=== PATIENT | female | born 1990 | race Caucasian/White ===

== ENCOUNTER 2018-06-30 09:13 | Emergency (ER) | payer OTHER ==
[2018-06-30 09:45] VITALS: BP 134/82
--- NOTE | 2018-06-30 10:29 | UC ---
Respiratory Complaint HPI - HPI Summary HPI Summary: 28-year-old woman comes to clinic today with a complaint of 5 days of upper respiratory tract infection symptoms. She has a cough bringing up yellow sputum. Positive sore throat. Positive rhinorrhea. No vomiting. No fever. No wheezing. - History of Current Complaint Chief Complaint: UCRespiratory Stated Complaint: COUGH SORE THROAT Time Seen by Provider: 06/30/18 10:10 Hx Last Menstrual Period: 2 yr Pain Intensity: 9 - Allergies/Home Medications Allergies/Adverse Reactions: Allergies Allergy/AdvReac Type Severity Reaction Status Date / Time atomoxetine [From Strattera] Allergy Abdominal Verified 06/30/18 09:46 Pain Home Medications: Home Medications Cold And Flu Med 1 dose PO BID PRN 06/30/18 [History Confirmed 06/30/18] Eucalyptus/Menthol [Salazar Cough Drops] 1 dhiraj MT SEE INSTRUCTIONS PRN 06/30/18 [ History Confirmed 06/30/18] PMH/Surg Hx/FS Hx/Imm Hx Other Endocrine History: OBESITY Other Respiratory History: NO HX ASTHMA/COPD/CHF - Surgical History Surgical History: Yes Surgery Procedure, Year, and Place: tonsils, gallbladder, left wrist cyst - Family History Known Family History: Positive: Cardiac Disease, Diabetes - Social History Alcohol Use: None Substance Use Type: None Smoking Status (MU): Former Smoker Review of Systems Constitutional: Negative Skin: Negative Eyes: Negative ENT: Sore Throat, Nasal Discharge, Sinus Congestion, Sinus Pain/Tenderness Respiratory: Cough Cardiovascular: Negative Gastrointestinal: Negative Genitourinary: Negative Motor: Negative Neurovascular: Negative Musculoskeletal: Negative Neurological: Negative Psychological: Negative Is Patient Immunocompromised?: No All Other Systems Reviewed And Are Negative: Yes Physical Exam Triage Information Reviewed: Yes Appearance: No Pain Distress, Well-Nourished, Ill-Appearing - MILD Vital Signs: Initial Vital Signs Temp 97.2 F 06/30/18 09:38 Pulse 107 06/30/18 09:38 Resp 20 06/30/18 09:38 BP 134/82 06/30/18 09:38 Pulse Ox 96 06/30/18 09:38 Vital Signs Reviewed: Yes Eye Exam: Normal ENT: Positive: Pharyngeal erythema, Nasal congestion, Nasal drainage, TMs normal Neck exam: Normal Neck: Positive: Supple Respiratory: Positive: Lungs clear, Normal breath sounds, No respiratory distress, Other: - Positive dry cough Cardiovascular: Positive: RRR Musculoskeletal Exam: Normal Musculoskeletal: Positive: Strength Intact, ROM Intact, No Edema Neurological Exam: Normal Neurological: Positive: Alert Psychological Exam: Normal Skin Exam: Normal UC Diagnostic Evaluation - Laboratory O2 Sat by Pulse Oximetry: 96 Respiratory Course/Dx - Course Course Of Treatment: DISCUSSED VIRAL VERSES BACTERIAL INFECTION AND THE ROLE OF ANTIBIOTICS. THE PATIENT WISHES TO BE ON ANTIBIOTICS AT THIS TIME. - Differential Dx/Diagnosis Provider Diagnoses: Bronchitis Discharge - Sign-Out/Discharge Documenting (check all that apply): Patient Departure All imaging exams completed and their final reports reviewed: No Studies - Discharge Plan Condition: Stable Disposition: HOME Prescriptions: Azithromyxin BAMBI (NF) [Z-Bambi (Zithromax) 250 mg tabs #6] 2 tab PO .TODAY, THEN 1 DAILY #6 tab Patient Education Materials: Acute Bronchitis (ED) Referrals: Nathalie Begum MD [Primary Care Provider] - Additional Instructions: FOLLOW UP WITH YOUR DOCTOR. GET RECHECKED FOR ANY WORSENING OF YOUR CONDITION OR QUESTIONS OR CONCERNS. - Billing Disposition and Condition Condition: STABLE Disposition: Home
== END 2018-06-30 10:36 | disposition home or self-care (01) ==
LOC: UCCORT 09:13
DX: J40 Bronchitis, not specified as acute or chronic (principal); Z88.8 Allergy status to other drugs, medicaments and biological substances; Z87.891 Personal history of nicotine dependence
CPT/HCPCS: 99212; G0463

== ENCOUNTER 2018-07-10 17:21 | Emergency (ER) | payer OTHER ==
[2018-07-10 19:00] VITALS: BP 127/86
--- NOTE | 2018-07-10 19:39 | UC ---
Ear Complaint HPI - HPI Summary HPI Summary: Patient is complaining of pain to her left ear for a day. She also notes the ear feels plugged. She denies any history of injury, URI and fever. - History of Current Complaint Chief Complaint: UCEar Stated Complaint: LEFT EAR PAIN Time Seen by Provider: 07/10/18 19:14 Hx Obtained From: Patient Hx Last Menstrual Period: 2 yr Onset/Duration: Gradual Onset Pain Intensity: 8 Aggravating Factors: Nothing Alleviating Factors: Nothing Associated Signs/Symptoms: Positive: Hearing Loss. Negative: Foreign Body Sensation, Trauma to Ear - Allergies/Home Medications Allergies/Adverse Reactions: Allergies Allergy/AdvReac Type Severity Reaction Status Date / Time atomoxetine [From Strattera] Allergy Abdominal Verified 07/10/18 19:00 Pain PMH/Surg Hx/FS Hx/Imm Hx Previously Healthy: Yes - Surgical History Surgical History: Yes Surgery Procedure, Year, and Place: tonsils, gallbladder, left wrist cyst - Family History Known Family History: Positive: Cardiac Disease, Diabetes - Social History Lives: With Family Alcohol Use: None Substance Use Type: None Smoking Status (MU): Former Smoker - Immunization History Vaccination Up to Date: Yes Review of Systems Constitutional: Negative Skin: Negative Eyes: Negative ENT: Ear Ache Respiratory: Negative Cardiovascular: Negative Gastrointestinal: Negative Genitourinary: Negative Motor: Negative Neurovascular: Negative Musculoskeletal: Negative Neurological: Negative Psychological: Negative Is Patient Immunocompromised?: No All Other Systems Reviewed And Are Negative: Yes Physical Exam Triage Information Reviewed: Yes Appearance: Well-Appearing Vital Signs: Initial Vital Signs Temp 97.7 F 07/10/18 18:56 Pulse 93 07/10/18 18:56 Resp 20 07/10/18 18:56 BP 127/86 07/10/18 18:56 Pulse Ox 99 07/10/18 18:56 Vital Signs Reviewed: Yes Eyes: Positive: Conjunctiva Clear ENT: Positive: Pharynx normal, TMs normal - R, L TM has deep erythema and the adjacent canal has mild erythema the rest of the canal is clear and there is no exudate. There is no pre-or postauricular adenopathy or mastoid tenderness.. Negative: Nasal congestion, Nasal drainage Neck: Positive: Supple, Nontender, No Lymphadenopathy Respiratory: Positive: Lungs clear, Normal breath sounds Cardiovascular: Positive: RRR, No Murmur Abdomen Description: Positive: Nontender, No Organomegaly, Soft Bowel Sounds: Positive: Present Musculoskeletal: Positive: ROM Intact Neurological: Positive: Alert Psychological: Positive: Age Appropriate Behavior Skin Exam: Normal Ear Complaint Course/Dx - Differential Dx/Diagnosis Differential Diagnosis/HQI/PQRI: Cerumen Impaction, Mastoiditis, Otitis Externa , Otitis Media, Perforated TM Provider Diagnoses: L OM. TOM Discharge - Sign-Out/Discharge Documenting (check all that apply): Patient Departure All imaging exams completed and their final reports reviewed: No Studies - Discharge Plan Condition: Stable Disposition: HOME Prescriptions: Amoxicillin PO (*) [Amoxicillin 875 MG (*)] 875 mg PO BID 10 Days #20 tab Neomyc/Polym/HC 1% OTIC SUSP* [Cortisporin Otic Susp 1%*] 4 drop LEFT EAR TID # 1 btl Patient Education Materials: Ear Infection (ED) Referrals: Nathalie Begum MD [Primary Care Provider] - 7 Days Additional Instructions: USE THE EAR DROPS X 1 WEEK. 4 DROPS LEFT EAR 3X'S DAILY - Billing Disposition and Condition Condition: STABLE Disposition: Home
== END 2018-07-10 19:54 | disposition home or self-care (01) ==
LOC: UCCORT 17:21
DX: H66.92 Otitis media, unspecified, left ear (principal); H60.92 Unspecified otitis externa, left ear; Z88.8 Allergy status to other drugs, medicaments and biological substances
CPT/HCPCS: 99212; G0463

== ENCOUNTER 2018-10-12 18:42 | Emergency (ER) | payer OTHER ==
[2018-10-12 19:53] VITALS: BP 161/81
--- NOTE | 2018-10-12 20:29 | UC ---
UC General HPI - HPI Summary HPI Summary: 2 day hx cough with congestion and ear pain. no cp, sob, fever or wheezing. - History of Current Complaint Chief Complaint: UCRespiratory Stated Complaint: COUGH,ST Time Seen by Provider: 10/12/18 20:20 Hx Obtained From: Patient Hx Last Menstrual Period: 2 yr Pain Intensity: 8 Associated Signs & Symptoms: Negative: Fever - Allergy/Home Medications Allergies/Adverse Reactions: Allergies Allergy/AdvReac Type Severity Reaction Status Date / Time atomoxetine [From Strattera] Allergy Abdominal Verified 10/12/18 19:53 Pain PMH/Surg Hx/FS Hx/Imm Hx Previously Healthy: Yes - Surgical History Surgical History: Yes Surgery Procedure, Year, and Place: tonsils, gallbladder, left wrist cyst - Family History Known Family History: Positive: Cardiac Disease, Diabetes - Social History Alcohol Use: None Substance Use Type: None Smoking Status (MU): Former Smoker - Immunization History Vaccination Up to Date: Yes Review of Systems All Other Systems Reviewed And Are Negative: Yes Constitutional: Positive: Negative Skin: Positive: Negative Eyes: Positive: Negative ENT: Positive: Negative Respiratory: Positive: Cough Cardiovascular: Positive: Negative Gastrointestinal: Positive: Negative Genitourinary: Positive: Negative Motor: Positive: Negative Neurovascular: Positive: Negative Musculoskeletal: Positive: Negative Neurological: Positive: Negative Psychological: Positive: Negative Physical Exam Triage Information Reviewed: Yes Appearance: Well-Appearing Vital Signs: Initial Vital Signs Temp 98.5 F 10/12/18 19:47 Pulse 108 10/12/18 19:47 Resp 20 10/12/18 19:47 BP 161/81 10/12/18 19:47 Pulse Ox 96 10/12/18 19:47 Vital Signs Reviewed: Yes Eye Exam: Normal ENT: Positive: Pharynx normal, TMs normal. Negative: Nasal congestion, Nasal drainage Neck: Positive: Supple, Nontender, No Lymphadenopathy Respiratory: Positive: Lungs clear, Decreased breath sounds, Other: - Frequent congested cough Cardiovascular: Positive: RRR, No Murmur Abdomen Description: Positive: Nontender, No Organomegaly, Soft Bowel Sounds: Positive: Present Musculoskeletal: Positive: ROM Intact Neurological: Positive: Alert Psychological: Positive: Age Appropriate Behavior Skin Exam: Normal Course/Dx - Differential Dx - Multi-Symptom Differential Diagnoses: Other - bronchitis, pneumonia, om, uri - Diagnoses Provider Diagnosis: Bronchitis Discharge - Sign-Out/Discharge Documenting (check all that apply): Patient Departure All imaging exams completed and their final reports reviewed: No Studies - Discharge Plan Condition: Stable Disposition: HOME Prescriptions: Albuterol HFA INHALER* [Ventolin HFA Inhaler*] 2 puff INH Q6H #1 mdi predniSONE TAB* [Deltasone 20 MG TAB*] 40 mg PO DAILY 5 Days #10 tab Patient Education Materials: Acute Bronchitis (ED) Referrals: Stella Covarrubias MD [Primary Care Provider] - 7 Days - Billing Disposition and Condition Condition: STABLE Disposition: Home
== END 2018-10-12 20:45 | disposition home or self-care (01) ==
LOC: UCCORT 18:42
DX: J40 Bronchitis, not specified as acute or chronic (principal); Z88.8 Allergy status to other drugs, medicaments and biological substances
CPT/HCPCS: 99212; G0463